=== PATIENT | female | born 1995 | race Caucasian/White ===

== ENCOUNTER 2020-01-28 17:24 | Observation (INO) ==
[2020-01-28 15:42] LABS: Amorphous Sediment,Urine Few per hpf (None-Few); Bacteria,Urine Few per hpf (None-Few); Bilirubin,Urine Negative (Negative); Blood,Urine Negative (Negative); Clarity,Urine Turbid (Clear); Color,Urine Yellow (Yellow); Glucose,Urine (UA) Normal (Normal); Ketones,Urine Negative (Negative); Leukocyte Esterase,Urine Moderate (Negative); Mucus,Urine Few per lpf (None-Few); Nitrite,Urine Negative (Negative); Protein,Urine Trace mg/dL (Neg-Trace); Specific Gravity,Urine 1.019 (1.010-1.025); Squamous Epithelial Cell,Urine Few per hpf (None-Few); Urobilinogen,Urine Normal (Normal)
[2020-01-28 15:57] LABS: Amphetamine Screen,Urine Negative ng/mL (Cutoff=1000); Barbiturate Screen,Urine Negative ng/mL (Cutoff=200); Benzodiazepines Screen,Urine Negative ng/mL (Cutoff=200); Cannabinoid Screen,Urine Negative ng/mL (Cutoff = 50); Cocaine Screen,Urine Negative ng/mL (Cutoff= 300); Opiate Screen,Urine Positive ng/mL (Cutoff=300); Phencyclidine Screen,Urine Negative ng/mL (Cutoff=25)
[2020-01-28 16:13] LABS: Varicella Zoster IgG Antibody Negative
[2020-01-28 16:14] LABS: Rubella IgG Antibody Negative (POSITIVE)
[2020-01-28 16:17] LABS: Hepatitis B Surface Antigen Nonreactive (Nonreactive)
[2020-01-28 16:46] LABS: HIV-1&2 Antibody & p24 Ag Nonreactive (Nonreactive)
[~2020-01-28 17:24] MED LIST: *HR* Buprenorphine HCl 8 MG TAB.SUBL SL SCH; Acetaminophen 325 MG TABLET PO PRN; Nicotine 14 MG PATCH.TD24 TD SCH; Ringers Solution, Lactated 1,000 ML IVC SCH
[2020-01-28 19:51] LABS: Hepatitis C Virus Antibody Reactive (Nonreactive)
== END 2020-01-28 20:46 | disposition home or self-care (01) ==
LOC: 1NENULAB
PROVIDERS: ADMIT Obstetrics & Gynecology; ATTEND Obstetrics & Gynecology

== ENCOUNTER 2020-03-27 20:34 | Inpatient (IN) ==
[~2020-03-27 20:34] MED LIST changes: -*HR* Buprenorphine HCl 8 MG TAB.SUBL SL SCH; -Acetaminophen 325 MG TABLET PO PRN; -Nicotine 14 MG PATCH.TD24 TD SCH; -Ringers Solution, Lactated 1,000 ML IVC SCH; +Ringers Solution, Lactated 1,000 ML ONE
[2020-03-27] MEDS ORDERED: Famotidine 20 MG/2 ML VIAL IVP PRN (20:41)
[2020-03-27] MEDS ORDERED: Ondansetron 4 MG/2 ML VIAL IVP PRN (20:41)
[2020-03-27] MEDS ORDERED: Metoclopramide 10 MG/2 ML VIAL IVP PRN (20:41)
[2020-03-27] MEDS ORDERED: Naloxone 0.4 MG/ML INJ IVP PRN (20:41)
[2020-03-27] MEDS ORDERED: Ringers Solution, Lactated 1,000 ML IVC SCH (20:45)
[2020-03-27 21:27] LABS: Basophils # 0.1 K/mcL (0.0-0.2); Basophils % 0.3 %; Eosinophils % 0.1 %; Hematocrit 32.9 % (35.3-44.9); Hemoglobin 10.1 g/dL (11.5-15.4); Immature Granulocytes % 0.4 % (0-4); Lymphocytes # 3.6 K/mcL (0.6-4.6); Lymphocytes % 23.8 %; Mean Corpuscular HGB Conc 30.7 g/dL (31.6-35.5); Mean Corpuscular Hemoglobin 22.3 pg (28.0-33.3); Mean Corpuscular Volume 72.8 fL (83.0-100.0); Mean Platelet Volume 10.5 fL (9.4-12.4); Monocytes # 0.9 K/mcL (0.0-1.3); Monocytes % 6.1 %; Neutrophils # 10.6 K/mcL (1.6-8.9); Nucleated Red Blood Cells 0.1 /100 WBC (0); Platelet Count 440 K/mcL (140-400); Red Blood Count 4.52 M/mcL (3.82-4.97); Red Cell Distribution Width 16.4 % (11.5-14.5); Segmented Neutrophils % 69.3 %; White Blood Count 15.3 K/mcL (4.3-11.1)
[2020-03-27] MEDS ORDERED: Measles/Mumps/Rubella Vacc 0.5 ML VIAL SQ PRN (23:08)
[2020-03-27] MEDS ORDERED: Benzocaine/Menthol 56 GM AEROSOL SPRAY TP PRN (23:08)
[2020-03-27] MEDS ORDERED: Oxytocin 20 units/ LR 1000 mL 20 UNIT/1,000 ML BAG IVC SCH (23:08)
[2020-03-27] MEDS ORDERED: Acetaminophen 325 MG TABLET PO PRN (23:08)
[2020-03-27] MEDS ORDERED: Oxytocin 20 units/ LR 1000 mL 20 UNIT/1,000 ML BAG IVC ONE (23:18)
[2020-03-28] MEDS: Ibuprofen 600 MG TABLET PO PRN ×3 (00:52→17:40)
[2020-03-28 01:21] LABS: Amphetamine Screen,Urine Negative ng/mL (Cutoff=1000); Barbiturate Screen,Urine Negative ng/mL (Cutoff=200); Benzodiazepines Screen,Urine Negative ng/mL (Cutoff=200); Cannabinoid Screen,Urine Negative ng/mL (Cutoff = 50); Cocaine Screen,Urine Negative ng/mL (Cutoff= 300); Opiate Screen,Urine Negative ng/mL (Cutoff=300); Phencyclidine Screen,Urine Negative ng/mL (Cutoff=25)
[2020-03-28 08:03] VITALS: BP 110/68
[2020-03-28] MEDS ORDERED: Etonogestrel 68 MG IMPLANT IL ONE (08:29)
[2020-03-28] MEDS ORDERED: Lidocaine/EPI 1:100k 1% 30 ML VIAL INFILT ONE (08:30)
[2020-03-28] MEDS ORDERED: Prenatal Vit/FA 1 EACH TABLET PO SCH (09:00)
== END 2020-03-28 17:55 | disposition home or self-care (01) | DRG 806 ==
LOC: 1NENULAB → 1NENUOBS 23:06
PROVIDERS: ADMIT Advanced Practice Midwife; ATTEND Advanced Practice Midwife